=== PATIENT | female | born 2000 | race Caucasian/White ===

== ENCOUNTER 2022-09-25 07:32 | Emergency (ER) | payer BC, SELFPAY ==
[2022-09-25 07:34] VITALS: BP 143/95; PULSE 90; RESP 17; TEMP 37.2; O2SAT 99; BMI 29.5
--- NOTE | 2022-09-25 07:38 | ECG_ITS ---
APPROVED REPORT Exam: Resting ECG HR:87 bpm ECG Measurements Heart Rate 87 AXES ND 148 P 46 QRSd 92 QRS 41 QT 354 T 40 QTc 399 Conclusion SINUS RHYTHM NORMAL ECG UNCONFIRMED REPORT Electronically signed by : Júnior Macario MD 09/25/2022 14:26:40
--- NOTE | 2022-09-25 07:41 | XR_ITS ---
FINAL REPORT CLINICAL HISTORY: palpitation COMPARISON: none FINDINGS: A single portable view of the chest was obtained. The heart size and pulmonary vascularity are within normal limits. The mediastinum is within normal limits. No acute pulmonary abnormality is identified. The bony thorax is intact. IMPRESSION: No active cardiopulmonary disease. Reviewed, Interpreted and Dictated by Alexander Pruitt III, MD Transcribed by Maria Dolores Milner Authenticated and [facility]
--- NOTE | 2022-09-25 07:41 | HMH.EDARPALP ---
Discharge Plan Disposition Patient Disposition: Home, Self-Care Condition: Good Chief Complaint: Arrhythmia/Palpitations Referrals Follow up/Referrals: ProviderMary MD [Primary Care Provider] - See instructions Dru Armstrong MD [Staff Physician] - See instructions Activity Restrictions/Add. Instructions Additional Instructions/Restrictions: At this time was felt you are safe to be discharged home. New or worsening symptoms please not hesitate to return for continued evaluation. Please call and schedule an appointment with cardiology. Clinical Impressions Clinical Impression: Palpitations Discharge ED Provider: Jim Mcduffie Arrhythmia/Palpitations HPI <Ann Forbes MD - Last Filed: 09/25/22 07:49> General Chief Complaint: Arrhythmia/Palpitations Stated Complaint: heart racing Time Seen by Provider: 09/25/22 07:36 Mode of Arrival: Ambulatory Source of Information: Patient Limitations: No Limitations History of Present Illness HPI narrative: Patient is a 22 female who is here secondary to feeling a hard heartbeat. Patient stated that she was sitting at home just got back from work. Patient stated that she felt a thump in the chest. With that feeling patient had no chest pressure but felt short of breath lightheaded and dizzy. She did not pass out but felt like tunnel vision like she was going to go up. She is never experienced this before. EMS was called. Patient had a twelve-lead EKG which showed PVC. Patient has never had the symptoms in the past. No chest pain no shortness of breath. No palpitations in the past. Patient has not had any upper respiratory symptoms or GI symptoms. She does not have any thyroid disease or anxiety. complaint: skipped beats Onset (ago): hour(s) Duration: intermittent Severity: mild Context: occurred during rest Associated symptoms: shortness of breath and near-syncope Related Data Allergies Allergy/AdvReac Type Severity Reaction Status Date / Time No Known Allergies Allergy Verified 09/25/22 07:49 PFS <Ann Forbes MD - Last Filed: 09/25/22 07:49> PFS Disclaimer: The information contained in this section may have been updated after the patient was seen, as this information can be updated by other users. Medical History (Updated 09/25/22 @ 10:12 by Jim Mcduffie MD) No significant past medical history Family History (Updated 09/25/22 @ 08:01 by Dorcas Carver RN) Other Family history of cancer Social History (Updated 09/25/22 @ 08:01 by Dorcas Carver RN) Smoking Status: Never smoker alcohol intake: never current occupational status: employed Travel in the last 8 weeks: None <Ann Forbes MD - Last Filed: 09/25/22 07:49> ROS Obtained: Yes All systems reviewed & no additional complaints except as documented Cardiovascular Cardiovascular: Reports dyspnea and Reports other (Feels a heavy beat.) Respiratory Respiratory: Reports dyspnea Physical Exam <Ann Forbes MD - Last Filed: 09/25/22 07:49> General General appearance: alert and in distress Head Head exam: atraumatic, normocephalic and normal inspection Eye Eye exam: Present normal appearance, PERRL and EOMI; Absent scleral icterus or conjunctival redness Neck Neck exam: Present normal inspection, full ROM and trachea midline Chest Chest inspection: Present normal inspection and symmetric chest wall rise Respiratory Respiratory exam: Present normal lung sounds bilaterally Cardiovascular Cardiovascular exam: Present regular rate, normal rhythm, normal heart sounds, +S1 and +S2 Abdominal Exam Abdominal exam: Present soft and normal bowel sounds; Absent distention, tenderness, guarding, rebound or rigidity Extremities Exam Extremities exam: Present normal inspection, full ROM and normal capillary refill; Absent tenderness, edema, joint swelling or calf tenderness Back Exam Back exam: Present normal inspection and full ROM; Absent tenderness, CVA
[2022-09-25 08:01] VITALS: BP 127/91; PULSE 92; O2SAT 98
[2022-09-25 08:11] LABS: Basophils # 0.1 K/mm3 (0-0.2); Basophils % 0.7 % (0.1-2.0); Eosinophils # 0.2 K/mm3 (0.0-0.4); Eosinophils % 2.2 % (0.1-12.0); Hematocrit 42.8 % (37.0-47.0); Hemoglobin 13.2 g/dL (12.2-16.2); Lymphocytes # 2.3 K/mm3 (0.7-4.5); Lymphocytes % 27.2 % (10-50); Mean Corpuscular HGB Conc 30.9 g/dL (31.8-35.4); Mean Corpuscular Hemoglobin 24.6 pg (27.0-31.2); Mean Corpuscular Volume 79.5 fl (81-99); Mean Platelet Volume 7.8 fl (7.4-10.4); Monocytes # 0.7 K/mm3 (0.1-1.0); Monocytes % 8.6 % (1.7-9.3); Neutrophils # 5.2 K/mm3 (1.8-7.8); Neutrophils % 61.2 % (37.0-80.0); Platelet Count 275 K/mm3 (142-424); Red Blood Count 5.39 M/mm3 (4.20-5.40); Red Cell Distribution Width 13.9 % (11.5-17.5); White Blood Count 8.4 K/mm3 (4.8-10.8)
[2022-09-25 08:17] LABS: Activated Partial Thrombo Time 27.9 seconds (22.8-30.6); INR 0.98 (0.9-1.1); Prothrombin Time 10.6 seconds (10.1-12.5)
[2022-09-25 08:18] LABS: Chloride 105 mmol/L (98-107); Potassium 3.4 mmoL/L (3.5-5.1); Sodium 142 mmol/L (136-145)
[2022-09-25 08:20] LABS: Alanine Aminotransferase 38 U/L (12-78); Aspartate Amino Transferase 35 U/L (14-36); Blood Urea Nitrogen 13 mg/dl (7-17); Estimated Glomerular Filt Rate 104 ml/min (>60); GFR (African American) 125 ML/MIN (>60)
[2022-09-25 08:21] LABS: Albumin Level 4.7 g/dl (3.5-5.0); Albumin/Globulin Ratio 1.7 (1.1-1.8); Alkaline Phosphatase 90 U/L (38-126); Anion Gap 12.4 mEq/L (5-15); Bilirubin,Total 0.4 mg/dl (0.2-1.3); Calcium 9.2 mg/dl (8.4-10.2); Carbon Dioxide 28 mmol/L (22.0-30.0); Globulin 2.8 g/dL (1.3-3.2); Glucose 119 mg/dl (74-100); Total Protein,Serum 7.5 g/dl (6.3-8.2)
[2022-09-25 08:30] VITALS: BP 121/81; PULSE 71; RESP 19; O2SAT 97
[2022-09-25 08:38] LABS: HCG Qualitative, Serum Negative (Negative); Triiodothryronine (T3) Uptake 30 % (23.5-40.5)
[2022-09-25 08:39] LABS: Free Thyroxine Index 3.4 ug/dL (5.93-13.13); T4 (Thyroxine) 11.3 ug/dl (5.53-11.0)
[2022-09-25 08:53] LABS: Thyroid Stimulating Hormone 3.22 uIU/mL (0.465-4.68)
[2022-09-25 09:00] VITALS: BP 128/80; PULSE 80; O2SAT 96
--- NOTE | 2022-09-25 09:25 | PC.NURSE ---
rounded on pt no complaints at this time,call light at bs
[2022-09-25 09:30] VITALS: BP 139/75; PULSE 74; O2SAT 95
--- NOTE | 2022-09-25 09:31 | PC.NURSE ---
late entry: 930 called and spoke to Fahad Mares in Radiology, asked about status of xray. Staff will look to see if it is available and send results down if available.
--- NOTE | 2022-09-25 10:08 | PC.NURSE ---
DR TRACY AT BEDSIDE TO UPDATE PT
[2022-09-25 10:20] VITALS: BP 133/71; PULSE 70; RESP 17; TEMP 36.7; O2SAT 96
== END 2022-09-25 10:20 | disposition home or self-care (01) ==
PROVIDERS: Emergency Medicine; Emergency Provider Emergency Medicine
DX: R00.2 Palpitations (principal); R42 Dizziness and giddiness; R06.02 Shortness of breath
CPT/HCPCS: 71045; 80053; 84436; 84443; 84479; 84703; 85025; 85610; 85730; 93005; 99285